=== PATIENT | male | born 1995 | race Caucasian/White ===

== ENCOUNTER 2018-04-19 15:59 | Emergency (ER) | payer OTHER ==
[2018-04-19] MEDS ORDERED: KETOROLAC TROMETHAMINE 30 MG/1ML VIAL ONE (16:01)
[2018-04-19] MEDS ORDERED: ONDANSETRON HCL/PF 4 MG/ 2ML VIAL ONE (16:01)
[2018-04-19] MEDS ORDERED: 0.9 % SODIUM CHLORIDE 1,000 ML IV ONE ×2 (16:01→16:12)
[2018-04-19] MEDS ORDERED: KETOROLAC TROMETHAMINE 30 MG/1ML VIAL IVP ONE (16:12)
[2018-04-19] MEDS ORDERED: ONDANSETRON HCL/PF 4 MG/ 2ML VIAL IVP ONE (16:16)
--- NOTE | 2018-04-19 16:57 | ED Physician Documentation ---
General Adult - HISTORIAN Historian: patient - HPI Stated Complaint: right flank, abd pain Chief Complaint: General Adult Onset: hours Timing: still present Severity: moderate Further Comments: yes (Pt is a 22 yo male with R sided abd pain that radiates to the groin that started earlier today. Pt has had hematuria and nausea. No significant PMHx. No fever.) - ROS CONST: no problems EYES/ENT: none CVS/RESP: none GI/: abdominal pain, problems urinating MS/SKIN/LYMPH: none - PAST HX Past History: other (ADHD) Allergies/Adverse Reactions: Allergies Allergy/AdvReac Type Severity Reaction Status Date / Time No Known Allergies Allergy Verified 04/19/18 16:21 Home Medications: Ambulatory Orders Medication Instructions Recorded Bupropion HCl [Wellbutrin Xl] 300 mg PO DAILY 04/19/18 Buspirone HCl [BUSPAR] 5 mg PO TID PRN 04/19/18 Dextroamphetamine/Amphetamine 30 mg PO DAILY 04/19/18 [Adderall 30 mg Tablet] - SOCIAL HX Smoking History: non-smoker - FAMILY HX Family History: No - VITAL SIGNS Vital Signs: Vital Signs Temp Pulse Resp BP Pulse Ox 98.0 F 85 24 139/75 99 04/19/18 16:00 04/19/18 16:00 04/19/18 16:00 04/19/18 16:00 04/19/18 16:00 - REVIEWED ASSESSMENTS Nursing Assessment Reviewed: Yes Vitals Reviewed: Yes Progress - Progress Progress: CT abd/pelvise w/o contrast: 2 mm right ureterovesical junction calculus causing mild urinary obstruction. NS 1 L IVF Toradol 30 mg IV Zofran 4 mg IV improved D/c instructions: Rx Toradol 10 mg. Take one by mouth every 6 hours as needed for pain. Maximum 4 per day. Maximum duration 5 days. Rx Zofran 4 mg ODT. Take one every 8 hours as needed for nausea/vomiting. Rx Tamsulosin 0.4 mg. Take one daily for 5 days or until kidney stone passes. Rx Bactrim DS. Take one every 12 hours for 5 days. ED Results Lab/Radiology - Orders Orders: ED Orders Category Date Time Status CT ABD & PELVIS W/O CON Stat Exams 04/19/18 Taken URINALYSIS Routine Lab 04/19/18 Ordered 0.9 % Sodium Chloride [Normal Saline] 1,000 ml Med 04/19/18 16:01 Discontinued IV .STK-MED 0.9 % Sodium Chloride [Normal Saline] 1,000 ml Med 04/19/18 16:12 Active IV Q1H Ketorolac Tromethamine [Toradol] Med 04/19/18 16:01 Discontinued 30 mg .ROUTE .STK-MED ONE Ketorolac Tromethamine [Toradol] Med 04/19/18 16:12 Discontinued 30 mg IVP NOW ONE Ondansetron HCl/Pf [Zofran 4 mg/2 ml] Med 04/19/18 16:01 Discontinued 4 mg .ROUTE .STK-MED ONE Ondansetron HCl/Pf [Zofran 4 mg/2 ml] Med 04/19/18 16:16 Discontinued 4 mg IVP NOW ONE General Adult Physical Exam - PHYSICAL EXAM GENERAL APPEARANCE: moderate distress EENT: pharynx normal NECK: normal inspection, supple RESPIRATORY: no resp distress, chest non-tender, breath sounds normal CVS: reg rate & rhythm, heart sounds normal, no murmur ABDOMEN: soft, normal bowel sounds, tenderness (R flank) BACK: normal inspection, CVA tenderness (R) SKIN: warm/dry, normal color EXTREMITIES: non-tender, normal range of motion, no evidence of injury NEURO: oriented X3, motor nml, sensation nml Discharge Clincal Impression: Kidney stone Referrals: Primary Doctor,No [Primary Care Provider] - Condition: Stable Disposition: 01 HOME, SELF-CARE Decision to Admit: NO Decision Time: 17:47
[2018-04-19 18:06] VITALS: BP 122/70
[2018-04-19 23:03] LABS: APPEARANCE,URINE CLOUDY (CLEAR); COLOR,URINE YELLOW (YELLOW); OCCULT BLOOD,URINE 3+ (NEGATIVE); UROBILINOGEN URINE 0.2 Eu (0.2-1.0)
--- NOTE | 2018-04-20 15:49 | Diagnostic Imaging Report ---
DARNELL LAU [facility] [id number] [facility] [address] [place], [place]. [address] Report Submission Date: Apr 19, 2018 4:58:43 PM CDT Patient Study Name: JOSE BERNARDO Date: Apr 19, 2018 4:32:49 PM CDT Modality Type: CT\SR Gender: M Description: CT ABD PELVIS W/O CO : 93 Institution: [facility] Physician: DARNELL LAU CT abdomen and pelvis without contrast History: Abdominal pain, hematuria Technique: Images through the abdomen and pelvis were obtained without contrast. Findings: The lung bases, liver, gallbladder, spleen, pancreas, left kidney and bilateral adrenal glands are normal. There is no hydronephrosis, hydroureter, renal or ureteral calculus on the left. There is no renal calculus on the right. There is mild right hydronephrosis and hydroureter, secondary to a 2 mm ureterovesical junction calculus. There is no free air or fluid. There is no bowel obstruction. The appendix is normal. Impression: 2 mm right ureterovesical junction calculus causing mild urinary obstruction. Electronically signed on Apr 19, 2018 4:58:43 PM CDT by: Jose MURDOCK
== END 2018-04-19 18:05 | disposition home or self-care (01) ==
LOC: ED 15:59
DX: N20.0 Calculus of kidney (principal)
CPT/HCPCS: 74176; 81002; J1885; J2405; J7030; 96365; 96375; 99284; S1016